=== PATIENT | female | born 1935 | race Caucasian/White ===

== ENCOUNTER 2016-09-07 14:59 | Emergency (ER) | payer MEDICARE, OTHER ==
--- NOTE | ~2016-09-07 | CR172 ---
[facility]. [facility] A Service of [facility] & [facility] RADIOLOGY TEXT RESULTS PATIENT: RAJ MEYER LOCATION: SED : 33 UNIT #: [id number] AGE: [address]: Nuno Seaman MD SEX: F ORDER DR: [id number] [address] [id number] [id number] MR#: [id number] Acc #: [id number] NAME: RAJ MEYER : 1935 SEX: F STUDY DATE/TIME: 09/07/2016 14:18 UNIT: SED ROOM: STUDY DESCRIPTION: CR Knee 3 Views Lt Attending Physician: Nuno Seaman M.D. Ordering Physician: Nuno Seaman M.D. Primary Care Physician: Zane Torres M.D. MEDICAL IMAGING REPORT This report is preliminary unless electronic signature is present. EXAM Left knee. DATE OF EXAM 09/07/2016 INDICATIONS Knee pain and swelling that started yesterday. No trauma. FINDINGS 3 views of the knee were obtained. No fracture or malalignment is seen. There is no joint effusion. There is some mild patellofemoral osteoarthritis. IMPRESSION Mild patellofemoral osteoarthritis, otherwise, negative knee. Dictated by... Robby Pruitt Jr., M.D. THIS IS AN ELECTRONICALLY VERIFIED REPORT Robby Pruitt Jr., M.D. at 09/09/2016 12:53 AM DALIA/poonam TD: 09/07/2016 17:14 JOB #: [id number] MEDICAL IMAGING REPORT
[~2016-09-07 14:59] MED LIST: ACETAMINOPHEN650 M1 PO; ACTOS/MET; ALBUTEROL2.5 MG/0.5 IH; ALLERGY SHOTS; ALLERGY SHOTS IM; AMLODIPINE BESYL5 MG PO; ASAMANEX; ASMANEX0.24 G3 IH; ASPIRIN81 M1 PO; ASPIRINEC PO; AVAPRO PO; AVAPRO300 M1 PO; CENTRUM SILVER PO; CITRACAL200 MG; COZAAR; ECOTRIN81 M1 PO; FISH OIL 1,0001 CAP PO; FORADIL12 MCG NEB; FOSAMAX70 MG PO; GLUCOTROL XL PO; HYDRALAZINE HCL50 MG PO; LASIX PO; LASIX20 MG PO; MUCINEX DM ER1 EACH PO; PREDNISONE PO; PRILOSEC PO; PRILOSEC40 MG PO; SINGULAIR PO; THEOPHYLLIN PO; TRIAMTERENE-HCT1 TA6 PO; TRILIPIX; TRILIPIX135 MG PO; VIBRAMYCIN100 M1 PO; VIT B COMPLEX; VIT E PO; VITAMIN D31000 UNIT PO; VOLMAX4 MG PO; ZITHROMAX PO
== END 2016-09-07 15:26 | disposition home or self-care (01) ==
LOC: SED 14:59
DX: S83.92XA Sprain of unspecified site of left knee, initial encounter (principal); M17.0 Bilateral primary osteoarthritis of knee; I10 Essential (primary) hypertension; K21.9 Gastro-esophageal reflux disease without esophagitis; J45.909 Unspecified asthma, uncomplicated; E11.9 Type 2 diabetes mellitus without complications; Z88.0 Allergy status to penicillin; Z88.1 Allergy status to other antibiotic agents; Z88.8 Allergy status to other drugs, medicaments and biological substances; Z88.6 Allergy status to analgesic agent; X58.XXXA Exposure to other specified factors, initial encounter; Y92.009 Unspecified place in unspecified non-institutional (private) residence as the place of occurrence of the external cause; Y99.8 Other external cause status
CPT/HCPCS: 29530; 73562; 99283

== ENCOUNTER → 2016-11-07 | Outpatient (CLI) | payer MEDICARE, OTHER ==
[2016-11-07 11:50] LABS: ALBUMIN SERUM 4.2 g/dL (3.5-5.0); BILIRUBIN,TOTAL 0.6 mg/dL (0.2-2.0); CALCIUM SERUM 10.4 mg/dL (8.4-10.2); CREATININE SERUM 1.5 mg/dL (0.6-1.4); GLOM FILT RATE Estimated 32.1 mL/min (>60); PROTEIN TOTAL SERUM 7.8 g/dL (6.0-8.3); URIC ACID 6.3 mg/dL (2.6-7.2)
== END | disposition home or self-care (01) ==
LOC: SLAB 11:18
PROVIDERS: Internal Medicine Nephrology
DX: N18.3 Chronic kidney disease, stage 3 (moderate) (principal)
CPT/HCPCS: 36415; 80053; 82310; 83970; 84100; 84550

== ENCOUNTER → 2016-12-06 | Outpatient (CLI) | payer MEDICARE, OTHER ==
[2016-12-06 13:28] LABS: ALBUMIN SERUM 4.4 g/dL (3.5-5.0); BILIRUBIN,TOTAL 0.3 mg/dL (0.2-2.0); BUN/CREATININE RATIO 19.23; CREATININE SERUM 1.3 mg/dL (0.6-1.4); GLOM FILT RATE Estimated 38.2 mL/min (>60); POTASSIUM 4.3 mmol/L (3.5-5.1); PROTEIN TOTAL SERUM 7.8 g/dL (6.0-8.3)
== END | disposition home or self-care (01) ==
LOC: SLAB 12:43
PROVIDERS: Internal Medicine Nephrology
DX: N18.3 Chronic kidney disease, stage 3 (moderate) (principal)
CPT/HCPCS: 36415; 80053; 86334